=== PATIENT | male | born 1965 | race Caucasian/White ===

== ENCOUNTER 2019-12-09 17:52 | Emergency (ER) | payer MEDICAID ==
[~2019-12-09] VITALS: Ht 177.8 cm; Wt 68.0 kg
--- NOTE | 2019-12-09 17:52 | NUR ---
Patient to ER bed H1 to gown for evaluation. Side rails up.
--- NOTE | 2019-12-09 18:00 | NUR ---
pt bib law enforcement for an ok to book. Pt also [facility] right [facility]
[2019-12-09 18:02] VITALS: BP_SYST 141
--- NOTE | 2019-12-09 18:19 | NUR ---
Written and verbal consent obtained from patient for blood alcohol, name and verified by patient. Disinfected patient's skin with betadine that did not contain alcohol or other volatile organic compound. Collected the blood from the subject named by venipuncture, in the presence of Officer Brando. Used a sterile, dry hypodermic needle and dry vacuum blood collection. Two dry vacuum blood collection was supplied by the officer named above. Withdrew a specimen of blood from LAC of the subject named above. Inverted both blood tubes several times to ensure that the preservative and anticoagulant were thoroughly mixed in the blood specimen. I initialed both blood tube labels for identification. The labeled blood tubes were handed directly to the Officer named above. The blood tubes stopper remained in place while I had possession of the blood tubes. The Officer placed tubes into envelope and sealed it in my presence. Envelope initialed by myself and Officer named above. Patient tolerated well, bandage applied, and bleeding controlled.
--- NOTE | 2019-12-09 18:21 | NUR ---
DR SORENSON AT BEDSIDE FOR EVALUATION
[2019-12-09] MEDS ORDERED: TETANUS IMMUNE GLOBULIN/PF 250 UNITS/SYR (HYPERTET) I.M. ONE (18:30)
[2019-12-09] MEDS ORDERED: DIPH-TET-PERTUS Vaccine 0.5 ML VIAL (ADACEL) I.M. ONE (18:30)
--- NOTE | 2019-12-09 18:35 | NUR ---
cleansed right elbow w/ NS. Dressing applied. Tetanus shot administered
[2019-12-09 18:42] VITALS: BP_SYST 141
--- NOTE | 2019-12-09 18:43 | NUR ---
Patient given written and verbal discharge instructions and verbalizes understanding. ER MD discussed with patient the results and treatment provided. Patient in stable condition. ID arm band removed. Pain Scale 0/10. Opportunity for questions provided and answered. Medication side effect fact sheet provided.
== END 2019-12-09 18:43 ==
LOC: SED 17:52
DX: S51.011A Laceration without foreign body of right elbow, initial encounter (principal); X58.XXXA Exposure to other specified factors, initial encounter; Y93.89 Activity, other specified; Y92.89 Other specified places as the place of occurrence of the external cause; Y99.8 Other external cause status
CPT/HCPCS: 90715; 99283